=== PATIENT | male | born 1970 | race Two or more races ===

== ENCOUNTER 2016-08-06 11:53 | Day surgery (SDC) | payer OTHER ==
[2016-08-06] VITALS (11 sets, daily range): BP systolic 133–156; BP diastolic 71–79; PULSE 40–50; RESP 18–29; Ht 165.1 cm; Wt 67.0 kg
[~2016-08-06] VITALS: Ht 165.1 cm; Wt 67.0 kg
[2016-08-06] MEDS ORDERED: CEFAZOLIN 2 GM/50 ML (PMX) 50 ML IVPB ONE (14:00)
[2016-08-06] MEDS ORDERED: SOD CHLORIDE 0.9% 1,000 ML IV SCH (14:00)
[2016-08-06 14:30] LABS: ADD SCAN DIFF NO
[2016-08-06 14:31] LABS: BASOPHILS % 0.6 % (0.0-2.0); EOSINOPHILS # 0.1 10^3/ul (0.0-0.5); EOSINOPHILS % 2.3 % (0.0-7.0); HEMATOCRIT 41.1 % (42.0-52.0); HEMOGLOBIN 14.2 g/dl (14.0-18.0); LYMPHOCYTES % 39.1 % (15.0-51.0); MEAN CORPUSCULAR HEMOGLOBIN 31.3 pg (29.0-33.0); MEAN CORPUSCULAR HGB CONC 34.5 g/dl (32.0-37.0); MEAN CORPUSCULAR VOLUME 90.5 fl (82.0-101.0); MEAN PLATELET VOLUME 9.6 fl (7.4-10.4); MONOCYTE # 0.5 10^3/ul (0.3-0.9); MONOCYTES % 8.7 % (0.0-11.0); NEUTROPHIL # 2.5 10^3/ul (1.6-7.5); NEUTROPHILS % 48.9 % (39.0-77.0); PLATELET COUNT 304 10^3/UL (140-415); RED BLOOD COUNT 4.54 10^6/ul (4.70-6.10); RED CELL DISTRIBUTION WIDTH 13.2 % (11.5-14.5); WHITE BLOOD COUNT 5.2 10^3/ul (4.8-10.8)
[2016-08-06 14:46] LABS: ALBUMIN 4.2 g/dl (3.3-4.9)
[2016-08-06 14:48] LABS: POTASSIUM 3.8 mmol/L (3.5-5.1)
[2016-08-06 14:49] LABS: ALBUMIN/GLOBULIN RATIO 1.23; BILIRUBIN,INDIRECT 0.5 mg/dl (0-1.1); BILIRUBIN,TOTAL 0.5 mg/dl (0.2-1.3); CREATININE 0.81 mg/dl (0.61-1.24); TOTAL PROTEIN 7.6 g/dl (6.1-8.1)
[2016-08-06 14:50] LABS: INR 0.94; PROTIME 12.6 Sec (12.2-14.2)
[2016-08-06 14:51] LABS: CALCIUM 9.4 mg/dl (8.4-10.2); PARTIAL THROMBOPLASTIN TIME 30.9 Sec (25.0-35.0)
[2016-08-06] MEDS ORDERED: BUPIVACAINE 0.25% (MPF) 30 ML INJ ONE (15:32)
[2016-08-06] MEDS ORDERED: MIDAZOLAM 1 MG/ML 2 ML INJ ONE (15:34)
[2016-08-06] MEDS ORDERED: METOCLOPRAMIDE 10 MG INJ ONE (15:34)
[2016-08-06] MEDS ORDERED: PROPOFOL 20 ML ONE (15:34)
[2016-08-06] MEDS ORDERED: ROCURONIUM 50 MG INJ ONE (15:34)
[2016-08-06] MEDS ORDERED: ROPIVACAINE 0.2% 20 ML VIAL ONE ×2 (15:34→16:05)
[2016-08-06] MEDS ORDERED: LIDOCAINE 2% (SDV) 5 ML INJ ONE (15:34)
[2016-08-06] MEDS ORDERED: CEFAZOLIN 1 GM INJ ONE (15:41)
[2016-08-06] MEDS ORDERED: GLYCOPYRROLATE 0.4 MG INJ ONE ×2 (16:15→16:39)
[2016-08-06] MEDS ORDERED: NEOSTIGMINE 3 MG/3 ML SYRINGE ONE (16:15)
[2016-08-06] MEDS ORDERED: HYDROmorphONE 2 MG/ML SYG ONE (16:18)
[2016-08-06] MEDS ORDERED: KETOROLAC 30 MG INJ ONE (16:26)
[2016-08-06] MEDS ORDERED: MEPERIDINE 25 MG INJ IV PRN (16:30)
[2016-08-06] MEDS ORDERED: HYDROmorphONE (0.2 MG/ML) 10ML SYG IV PRN ×3 (16:30)
[2016-08-06] MEDS ORDERED: LABETALOL HCL 20MG INJ IV PRN (16:30)
[2016-08-06] MEDS ORDERED: ONDANSETRON 4 MG INJ IV PRN (16:30)
[2016-08-06] MEDS ORDERED: OXYCODONE/ACETAMINOPHEN (5/325) TAB PO PRN ×2 (16:30)
[2016-08-06] MEDS ORDERED: DIPHENHYDRAMINE 50 MG INJ IV PRN (16:30)
[2016-08-06] MEDS ORDERED: hydrALAzine 20 MG INJ IV PRN (16:30)
[2016-08-06] MEDS ORDERED: METOCLOPRAMIDE 10 MG INJ IV PRN (16:30)
--- NOTE | 2016-08-06 16:42 | OPR ---
Date/Time of Note Date/Time of Note DATE: 08/06/16 TIME: 16:41 Operative Report Procedure Date: August 06, 2016 Preoperative Diagnosis RIH incarcerated Postoperative Diagnosis same Operation Performed open incarcerated RIH repair with large ultrapro hernia system mesh right ilioinguinal nerve block Surgeon: Chase BARKER G. SEONG August 06, 2016 16:42
[2016-08-06] MEDS ORDERED: HYDROCODONE/APAP (5/325) TAB PO ONE (17:00)
--- NOTE | 2016-08-06 17:01 | OPR ---
DATE OF OPERATION: 08/06/2016 INDICATION: This is a 48-year-old male with a right inguinal hernia that is incarcerated. He reque sts surgical repair. Risks, alternatives, benefits, and personnel were discussed with the patient. The patient expressed understanding and consents to the operation. PREOPERATIVE DIAGNOSIS: Right inguinal hernia. POSTOPERATIVE DIAGNOSIS: Right inguinal hernia. OPERATION: 1. Open right incarcerated inguinal hernia repair with large size ULTRAPRO hernia system mesh. 2. Right ilioinguinal block. SURGEON: Chandan Hdz MD SPECIMENS: None. COMPLICATIONS: None. ANESTHESIA: General. PROCEDURE: The patient was taken to the OR and prepped and draped in the usual sterile fashion. Baxter rgical timeout was performed. IV antibiotics were given. Oblique incision was made over the right inguinal region. Dissection cautery was carried down to the external oblique fascia which was opene d with a 15 blade. This incision is extended medial inferiorly and lateral superiorly with Metzenba um scissors. Cord structures were identified and encircled with a Дмитрий drain. Indirect hernia w as identified and reduced. This was affixed to the disk portion of the ULTRAPRO hernia system mesh which was secured in place a running 0 Prolene from the pubic tubercle along the shelving edge of th e inguinal ligament and superiorly to the internal oblique with interrupted 3-0 Vicryl. Onlay mesh was secured in a similar fashion with a running 0 Prolene from the pubic tubercle along shelving edg e of the inguinal ligament. Straps are created and reapproximated to recreate the inguinal ring wit h 0 Prolene. Onlay mesh was secured to the internal oblique with interrupted 3-0 Vicryl. External oblique fascia was closed with running 3-0 Vicryl. Tony's was closed with interrupted 3-0 Vicryl. Skin was closed using skin harjit. Local anesthesia was injected into the skin. Additionally, r ight ilioinguinal block is performed by identifying a point 2 cm medial and 2 cm inferior to the ASI S. Using a ____ motion, local anesthesia was injected. Dry dressings were applied. Dictated By: CHANDAN CORTEZ/PADMINI Conf#: [id number] DID#: [id number]
== END 2016-08-06 18:15 | disposition home or self-care (01) ==
LOC: SDS 11:53
PROVIDERS: ATTEND Surgery
DX: K40.30 Unilateral inguinal hernia, with obstruction, without gangrene, not specified as recurrent (principal)
CPT/HCPCS: 49507; 80053; 85025; 85610; 85730; C1781; J0690; J1170; J1885; J2250; J2710; J2765; J2795; Z7512; Z7610

== ENCOUNTER 2017-09-07 11:05 | Day surgery (SDC) | END 2017-09-07 16:30 | disposition home or self-care (01) ==

== ENCOUNTER 2017-10-26 09:12 | Day surgery (SDC) | END 2017-10-26 16:35 | disposition home or self-care (01) ==